=== PATIENT | male | born 1960 ===

== ENCOUNTER 2016-09-01 15:03 | Inpatient (IN) ==
--- NOTE | 2016-09-01 15:22 | Emergency Department Note ---
José Miguel Lowry [place], am scribing for, and in the presence of, Kevin Lagos MD 15:20. Demond Lowry Charles R, MD, personally performed the services described in this documentation, ascribed by Leia Valdez in my presence, and it is both accurate and complete 522 . Arrival - Arrival Chief Complaint: Chest Pain ED Nursing Triage Note: c/o chest pain with coughing and sob. cough started about 2 weeks ago Mode of Arrival: Stretcher Limitations: No Limitations Source: Patient Time Seen by Provider: 09/01/16 15:17 - History of Present Illness HPI Narrative: This is a 56 y/o male presenting to the ED with c/o chest pain, SOB and cough that onset two weeks ago. Pt states it started with his sinus congestion. He went outside this morning and became SOB and near syncopal and this is when the chest pain onset. With each cough, he states his chest pain returns. He states he is not in pain at the moment. Pt had a valve replaced, [place] valve. Pt states he has not taken his Warfarin in one month. He was given Lovenox. Pt denies nausea, vomiting, diarrhea, abdominal pain, back pain, dysuria, and pedal edema. Pt walks with a cane because he has chronic knee pain. His PMHx is consistent with HTN, glaucoma, GERD, and status post aVR. Consistency: constant Severity: moderate Allergies/Adverse Reactions: Allergies Allergy/AdvReac Type Severity Reaction Status Date / Time No Known Allergies Allergy Unverified 12/06/15 20:30 Home Medications: Home Medications Medication Instructions Recorded Confirmed Type Brimonidine 0.1% Oph Soln 1 drop BOTH EYES TID ophthalmic 02/21/16 09/01/16 Rx [Alphagan P 0.1% Oph Soln] solution Dorzolamide 2% Oph Soln [Trusopt 1 drop BOTH EYES TID ophthalmic 02/21/1609/01 Rx 2% Oph Soln] solution Thiamine Tab [Vitamin B1 Tab] 100 mg PO DAILY tablet 02/21/16 09/01/16 Rx Travoprost 0.004% Oph Soln 1 drop BOTH EYES BEDTIME 02/21/16 09/01/16 Rx [Travatan Z] ophthalmic solution Bisacodyl Tab [Dulcolax Tab] 10 mg PO BEDTIME PRN 03/11/16 09/01/16 History Aspirin EC Tab 81 mg PO DAILY #30 tablet 03/16/16 09/01/16 Rx Colchicine 0.6 mg PO DAILY 09/01/16 09/01/16 History Latanoprost [Latanoprost 0.005 % 1 drop BOTH EYES BEDTIME 09/01/16 09/01/16 History Oph Soln] Losartan [Cozaar] 50 mg PO DAILY 09/01/16 09/01/16 History Review of System - Review of System 12 point system: reviewed and no additional remarkable complaints except as stated - Review of System Constitutional: Absent: chills, fever, weakness Eyes: Absent: vision change Head/Ears/Nose/Throat: Absent: earache, nasal drainage Respiratory: Present: cough, wheezing. Absent: respiratory distress Cardiovascular: Present: chest pain, dyspnea on exertion. Absent: syncope ( near sycopal episode this morning ) Gastrointestinal: Absent: abdominal pain, nausea, vomiting Genitourinary male: Absent: dysuria Musculoskeletal: Absent: arm pain, back pain Skin: Absent: rash Neurological: Absent: headache, weakness, confusion, vertigo Psychiatric: Absent: anxiety Endocrine: Absent: fatigue Hematological/Lymphatic: Absent: easy bleeding Allergic/Immunologic: Absent: facial swelling Medical,Surgical,& Family Hx - Medical History Cardio: History of: Hypertension, Valvular Heart Disease (AI is status post aVR) Neurology: No history of: Seizures HEENT: History of: Eye Problem (Rt eye surg R/T trauma), Glaucoma Endocrine: History of: Dyslipidemia No history of: Diabetes Mellitus (IDDM), Diabetes Mellitus (NIDDM) Gastrointestinal: History of: GERD - Surgical History Cardiac Surgeries: Sugical HX of: Cardiac Surgery (Aortic valve replaced) - Social History Smoking Status: Former smoker Frequency of Alcohol Use: Occasionally Type of Drug Use: None Exam Vital Signs: Vital Signs Temperature 97.8 F 09/01/16 15:07 Pulse Rate 95 H 09/01/16 15:07 Respiratory Rate 18 09/01/16 15:07 Blood Pressure 163/98 09/01/16 15:07 O2 Sat by Pulse Oximetry 98 09/01/16 15:07 - General General appearance: alert, in no apparent distress - Head Head exam: Present: atraumatic, normocephalic, normal inspection - Eye Eye exam: Present: normal appearance, PERRL, EOMI, other (chronic right eye glazed over ) - ENT ENT exam: Present: normal exam, normal oropharynx, mucous membranes moist, TM's normal bilaterally, normal external ear exam - Neck Neck exam: Present: normal inspection, full ROM, trachea midline. Absent: tenderness - Chest Chest inspection: Present: normal inspection, symmetric chest wall rise. Absent : tenderness - Respiratory Respiratory exam: Present: rales, wheezes. Absent: normal lung sounds bilaterally - Cardiovascular Cardiovascular exam: Present: regular rate, normal heart sounds, other ( mechanical valve 4/6) - Abdominal Exam Abdominal exam: Present: soft, normal bowel sounds. Absent: distention, tenderness - Extremities Exam Extremities exam: Present: normal inspection, full ROM, normal capillary refill. Absent: tenderness, pedal edema, calf tenderness - Back Exam Back exam: Present: normal inspection, full ROM. Absent: tenderness - Neurological Exam Neurological exam: Present: alert, oriented X3, CN II-XII intact, normal gait, reflexes normal - Psychiatric Psychiatric exam: Present: normal affect, normal mood - Skin Skin exam: Present: warm, dry, intact, normal color. Absent: rash, diaphoresis Course - Consultations Consultation #1: Hospitalist will admit patient Time: 15:41 Results - Labs Lab Results: I have reviewed the patients labs Labs: All labs reviewed from previous facility Disposition Clinical Impression: Atypical chest pain, Chest pain, S/P AVR (aortic valve replacement), Chronic anticoagulation, Medical non-compliance Case discussed with: patient Disposition: Still a Patient Condition: Stable Time of Disposition: 15:42
[2016-09-01] MEDS ORDERED: FUROSEMIDE 40 MG/4 ML VIAL IV STA (15:32)
[2016-09-01] MEDS ORDERED: ASPIRIN 325 MG TABLET PO STA (15:32)
[2016-09-01] MEDS ORDERED: ONDANSETRON 4 MG/2 ML VIAL IV STA (15:32)
[2016-09-01] MEDS ORDERED: METOPROLOL TARTRATE 25 MG TABLET PO STA (15:32)
[2016-09-01] MEDS ORDERED: MORPHINE 2 MG/1 ML SYRINGE IV STA (15:32)
[2016-09-01] MEDS ORDERED: NITROGLYCERIN 2% OINT 1 INCH/GM PACK TOP STA (15:32)
[2016-09-01] MEDS ORDERED: NITROGLYCERIN 2% OINT 1 INCH/GM PACK TOP ONE (15:39)
[2016-09-01] MEDS ORDERED: METOPROLOL TARTRATE 25 MG TABLET ONE (15:39)
[2016-09-01] MEDS ORDERED: FUROSEMIDE 40 MG/4 ML VIAL ONE (15:39)
[2016-09-01] MEDS ORDERED: ONDANSETRON 4 MG/2 ML VIAL ONE (15:39)
[2016-09-01] MEDS ORDERED: MORPHINE 2 MG/1 ML SYRINGE ONE (15:40)
[2016-09-01] MEDS ORDERED: ASPIRIN 325 MG TABLET ONE (15:40)
--- NOTE | 2016-09-01 15:50 | XRay Report ---
XR chest 1V portable Indication: Chest pain Comparison: 12 March 2016 Findings: The heart and mediastinum are stable in size and configuration with cardiac surgery changes. The pulmonary vascularity is normal in caliber. No lung infiltrates, effusions, pneumothorax or other abnormality is demonstrated. Impression: No acute cardiopulmonary disease. PROCEDURE INTERPRETED AT [facility] DEPARTMENT OF RADIOLOGY Final Report Signed by: Dr. Rob Crawford
--- NOTE | 2016-09-01 15:51 | EKG Report ---
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
[2016-09-01 16:23] LABS: Basophils % 0.4 % (0.0-0.8); Eosinophils # 0.1 10*3/uL (0.0-0.87); Eosinophils % 6.1 % (0.00-10.9); Hematocrit 33.8 VOL% (42.0-52.0); Hemoglobin 11.1 GM/DL (14.0-18.0); Immature Granulocytes % 0.4 %; Immature Granulocytes Absolute 0.01 #; Lymphocytes # 0.7 10*3/uL (1.4-4.0); Mean Corpuscular HGB Conc 32.8 GM/DL (32-36); Mean Corpuscular Hemoglobin 27 PG (27-34); Mean Corpuscular Volume 83.3 FL (87-102); Mean Platelet Volume 9.4 FL (9.6-12.0); Monocytes # 0.2 10*3/uL (0.11-0.8); Monocytes % 9.6 % (1.7-12.7); Neutrophils # 1.2 10*3/uL (1.4-7.4); Neutrophils % 53.5 % (38.7-73.9); Red Blood Count 4.06 MC/CUMM (3.8-5.5); Red Cell Distribution Width 18.9 % (9.3-17.3); White Blood Count 2.3 T/CUMM (4-12)
[2016-09-01 16:30] LABS: Platelet Count 61 T/CUMM (130-400)
[2016-09-01 16:31] LABS: Platelet Estimate Decreased
[2016-09-01 16:32] LABS: D-Dimer 0.9 MG/L FEU; INR 1.1; PT Patient Result 11.9 SECS
[2016-09-01 16:43] LABS: Albumin 3.7 G/DL (3.4-5.0); Bilirubin,Total 0.9 MG/DL (0.2-1.0); Calcium 7.6 MG/DL (8.5-10.1); Osmolality,Calculated 285.7 MOS/KG (273-304); Potassium 3.8 MMOL/L (3.5-5.1); Total Protein 6.8 G/DL (6.4-8.3)
--- NOTE | 2016-09-01 17:08 | Hospitalist History & Physical ---
Assessment and Plan (1) Near syncope Status: Acute Assessment and plan: This could be related to his underlying URI Plan -Telemetry -Cardiac enzymes -Echo -carotid dopplers -CT head - Lovenox 1mg/kg q12 -restart Coumadin -consult Pharmarcy -consult Cardiology -D-dimer -ASA Current Visit: Yes (2) S/P AVR (aortic valve replacement) Status: Chronic Assessment and plan: INR is subtherapeutic, patient is clearly non compliant to his Coumadin -Restart anticoagulation -Pharmacy to assist -cardiology to evaluate -Echo Current Visit: No (3) Pancytopenia Status: Acute Assessment and plan: Patient not having any clinical evidence of bleed. He really needs to be on anticogulation -will get Hem/Onc to see and advise cbc in am Current Visit: Yes (4) HTN (hypertension) Status: Acute Assessment and plan: will resume meds Current Visit: No (5) URI (upper respiratory infection) Status: Acute Assessment and plan: will give duonebs -get influenza A and B -decongestants, sputum if produced for gram stain and cultures Current Visit: Yes (6) Glaucoma Status: Acute Assessment and plan: continue with home meds. Current Visit: Yes (7) Abnormal liver enzymes Status: Acute Assessment and plan: ? cause due ? ETOH -Hepatitis panel -liver scan Current Visit: Yes History of Present Illness Chief complaint: near syncope History of present illness: Mr. Mims is a 56 year old male with a history of AI s/p AVR somtime late last year, HTN, who has been having sinus problems, dry cough, nasal congestion, chills for the past 2weeks. This am, he went outside his house to use his phone , suddenly became weak, flushed,short of breath and almost passed out so he came back inside the house, called his clinic and EMS was sent to him.He states an associated heart flutter, chest pain related to his cough and left arm weakness and numbness. He however denies chest tightness. He had an episode of nausea yesterday but no vomiting, no hematemesis or melena stools. He also denies fever, dysuria, leg pain or swelling. No abdominal pain , constipation, diarrhea and no urinary symptoms.He states he hardly takes his coumadin and has not been on it for about a month because each time he visits the coumadin clinic , there is always a lot of people waiting. Upon arrival, INR was 1.1, cardiac enzymes were negative and he was pancytopenic.CXR showed no acute changes. He was given lovenox and now admitted to Telemetry for closer monitoring. Home Medications Medication Instructions Recorded Confirmed Type Brimonidine 0.1% Oph Soln 1 drop BOTH EYES TID ophthalmic 02/21/16 09/01/16 Rx [Alphagan P 0.1% Oph Soln] solution Dorzolamide 2% Oph Soln [Trusopt 1 drop BOTH EYES TID ophthalmic 02/21/1609/01 Rx 2% Oph Soln] solution Thiamine Tab [Vitamin B1 Tab] 100 mg PO DAILY tablet 02/21/16 09/01/16 Rx Travoprost 0.004% Oph Soln 1 drop BOTH EYES BEDTIME 02/21/16 09/01/16 Rx [Travatan Z] ophthalmic solution Bisacodyl Tab [Dulcolax Tab] 10 mg PO BEDTIME PRN 03/11/16 09/01/16 History Aspirin EC Tab 81 mg PO DAILY #30 tablet 03/16/16 09/01/16 Rx Colchicine 0.6 mg PO DAILY 09/01/16 09/01/16 History Latanoprost [Latanoprost 0.005 % 1 drop BOTH EYES BEDTIME 09/01/16 09/01/16 History Oph Soln] Losartan [Cozaar] 50 mg PO DAILY 09/01/16 09/01/16 History Allergies Allergy/AdvReac Type Severity Reaction Status Date / Time No Known Allergies Allergy Unverified 12/06/15 20:30 Medical,Surgical,& Family Hx - Medical History Cardio: History of: Hypertension, Valvular Heart Disease (AI is status post aVR) Neurology: No history of: Seizures HEENT: History of: Eye Problem (Rt eye surg R/T trauma), Glaucoma Endocrine: History of: Dyslipidemia No history of: Diabetes Mellitus (IDDM), Diabetes Mellitus (NIDDM) Gastrointestinal: History of: GERD - Surgical History Cardiac Surgeries: Sugical HX of: Cardiac Surgery (Aortic valve replaced) - Social History Smoking Status: Former smoker Frequency of Alcohol Use: Occasionally Type of Drug Use: None 12 point system: reviewed and no additional remarkable complaints except as stated Exam - Constitutional General appearance: no acute distress, other (bad right eye) - Respiratory Respiratory exam: Present: clear to auscultation bilaterally - Cardiovascular Cardiovascular exam: Present: regular rate and rhythm, other (mechanical click) - GI/Abdominal GI/Abdominal exam: Present: normal bowel sounds - Extremities Exam Extremities exam: Present: normal inspection Results - Labs CBC & BMP: 09/01/16 15:49 09/01/16 15:49 Lab Results: I have reviewed the past 24 hour labs
[2016-09-01 17:48] LABS: Apearance,Urine CLEAR (Clear); Bilirubin,Urine Negative (Negative); Blood, Urine Negative (Negative); Glucose,Urine (UA) Negative (Negative); Ketones,Urine Negative (Negative); Mucus,Urine Occasional /LPF (Occasional); Nitrite,Urine Negative (Negative); Protein,Urine Negative; RBC,Urine <1 /HPF (0-4); Squamous Epithelial Cell,Urine Occasional /HPF (0-10); Urine Color Yellow (Yellow); Urine Specific Gravity 1.009 (1.001-1.035); Urine Urobilinogen < 2.0 EU/DL (0.2-1.0); WBC,Urine 1 /HPF (0-6)
[2016-09-01 17:53] LABS: Barbiturates Screen,Urine Negative (Negative); Benzodiazepines Screen,Urine Negative (Negative); Cannabinoid Screen,Urine Negative (Negative); Opiate Screen,Urine Negative (Negative); Phencyclidine Screen,Urine Negative (Negative)
[2016-09-01] MEDS ORDERED: BISACODYL 5 MG TABLET PO PRN (20:03)
[2016-09-01] MEDS ORDERED: ONDANSETRON 4 MG/2 ML VIAL IV PRN (20:03)
[2016-09-01] MEDS ORDERED: guaiFENesin/DM ER 600-30 MG TABLET PO PRN (20:03)
[2016-09-01] MEDS ORDERED: ACETAMINOPHEN 325 MG TABLET PO PRN (20:03)
[2016-09-01] MEDS ORDERED: ZALEPLON 5 MG CAPSULE PO PRN (20:03)
--- NOTE | 2016-09-01 20:44 | CT Report ---
CT brain Indication: Near syncope Comparison: 24 December 2011 Technique: Axial CT imaging of the brain is performed without contrast with 3 mm increments. Findings: No evidence of hemorrhage, mass mass effect midline shift or acute infarct seen. The brain parenchyma attenuation and differentiation appears within normal limits. The ventricles and cisterns are normal in caliber. Right eye increased density is present. No other cranial or skull base is identified. Impression: No evidence of abnormality demonstrated. This CT exam was performed using one or more the following dose reduction techniques: Automated exposure control, adjustment of the MA and/or KV according to patient size, or use of iterative reconstruction technique. PROCEDURE INTERPRETED AT [facility] DEPARTMENT OF RADIOLOGY Final Report Signed by: Dr. Rob Crawford
[2016-09-01 20:52] LABS: Troponin I Only < 0.015 NG/ML (0.00-0.045)
--- NOTE | 2016-09-01 21:22 | Ultrasound Report ---
Carotid artery ultrasound Indication: Near syncope Comparison: None available Color Doppler flow and spectral analysis was performed. Findings: Minimal amount of atherosclerotic plaque is present in both proximal internal carotid arteries. The peak systolic velocity in the right is 57 cm/s . Ratio of flow is 1.1. The peak systolic velocity in the left is 64 cm/s . Ratio of flow is 1.2 Bilateral antegrade vertebral flow is seen. Impression: No evidence of hemodynamically significant stenosis is seen, 0-49% estimated stenosis. Consensus conference on the carotid ultrasound criteria used. Ultrasound images were captured and stored. PROCEDURE INTERPRETED AT [facility] DEPARTMENT OF RADIOLOGY Final Report Signed by: Dr. Rob Crawford
--- NOTE | 2016-09-01 21:24 | Ultrasound Report ---
Right upper quadrant ultrasound Indication: Abdominal Pain Findings: The liver is normal in size with heterogeneous parenchymal echogenicity. The gallbladder has been removed. The common bile duct measures 5.0 mm. The visualized portion of the pancreas appear within normal limits The right kidney is normal in size and echogenicity and measures 11.1 cm . No free fluid or free air seen. Impression: Heterogeneous liver echogenicity. No other evidence of abnormality demonstrated. Ultrasound images stored and captured. PROCEDURE INTERPRETED AT [facility] DEPARTMENT OF RADIOLOGY Final Report Signed by: Dr. Rob Crawford
[2016-09-01 21:56] LABS: Hepatitis A Ab IgM Quant 0.08 Index; Hepatitis A Ab IgM Result Negative (Negative); Hepatitis B Core IgM Quant 0.16 Index; Hepatitis B Core IgM Result Negative (Negative); Hepatitis B Surface Ag Quant < 0.10 Index; Hepatitis B Surface Ag Result Negative (Negative); Hepatitis C Virus Ab Quant 0.17 Index; Hepatitis C Virus Ab Result Negative (Negative)
[2016-09-01] MEDS: FLUTICASONE 50 MCG NASAL SPRAY 16 GM BOTTLE BOTH NARES SCH (22:23)
[2016-09-01] MEDS: WARFARIN 5 MG TABLET PO SCH (22:23)
[2016-09-01] MEDS: ENOXAPARIN 80 MG/0.8 ML SYRINGE SUBCUT SCH (22:24)
[2016-09-02] MEDS: BRIMONIDINE 0.1% OPH SOLN 5 ML BOTTLE BOTH EYES SCH ×4 (00:32→22:07)
[2016-09-02] MEDS: LATANOPROST 0.005% OPH SOLN 2.5 ML BOTTLE BOTH EYES SCH ×2 (00:32→22:13)
[2016-09-02] MEDS: TRAVOPROST 0.004% OPH SOLN 2.5 ML BOTTLE BOTH EYES SCH ×2 (00:32→22:09)
[2016-09-02] MEDS: DORZOLAMIDE 2% OPH SOLN 10 ML BOTTLE BOTH EYES SCH ×4 (00:32→22:07)
[2016-09-02 06:24] LABS: Basophils % 0.9 % (0.0-0.8); Eosinophils # 0.2 10*3/uL (0.0-0.87); Eosinophils % 7.1 % (0.00-10.9); Hematocrit 34.6 VOL% (42.0-52.0); Hemoglobin 11.2 GM/DL (14.0-18.0); Immature Granulocytes % 0.3 %; Immature Granulocytes Absolute 0.01 #; Mean Corpuscular HGB Conc 32.4 GM/DL (32-36); Mean Corpuscular Hemoglobin 27 PG (27-34); Mean Corpuscular Volume 82.2 FL (87-102); Mean Platelet Volume 9.5 FL (9.6-12.0); Monocytes # 0.4 10*3/uL (0.11-0.8); Monocytes % 11.5 % (1.7-12.7); Neutrophils # 1.6 10*3/uL (1.4-7.4); Neutrophils % 49.2 % (38.7-73.9); Red Blood Count 4.21 MC/CUMM (3.8-5.5); Red Cell Distribution Width 18.6 % (9.3-17.3); White Blood Count 3.2 T/CUMM (4-12)
[2016-09-02 06:25] LABS: Platelet Count 66 T/CUMM (130-400)
[2016-09-02 06:53] LABS: Albumin 3.6 G/DL (3.4-5.0); Bilirubin,Total 1.3 MG/DL (0.2-1.0); Calcium 8.1 MG/DL (8.5-10.1); Osmolality,Calculated 278.3 MOS/KG (273-304); Potassium 3.2 MMOL/L (3.5-5.1); Risk Ratio 2.28; Total Protein 6.9 G/DL (6.4-8.3); VLDL CHOLESTEROL 20.2 MG/DL
[2016-09-02 06:55] LABS: Troponin I Only < 0.015 NG/ML (0.00-0.045)
[2016-09-02 07:05] LABS: Hypochromasia 1+; Platelet Estimate Decreased
[2016-09-02 07:06] LABS: Microcytosis Slight
--- NOTE | 2016-09-02 08:05 | Oncology Consult Note ---
History of Present Illness History of present illness: Mr. Mims is a 56 year old male with Thrombocytopenia. To the patient's knowledge, he has never had thrombocytopenia. He does not even know what platelets are. I explained to him and he tells me that he has never been told he had a low platelet count. Medications that this patient is currently taking include eyedrops as well as aspirin, colchicine, and losartan. He was admitted at this time with chest pain and dyspnea as well as cough. I note that he is on an PRETTY inhibitor, losartan, which can be associated with cough as well as with thrombocytopenia, vasculitis, anemia and leukopenia. It is also associated with a nonproductive cough. Blood work on this admission included a white cell count 2300 with an absolute neutrophil count of 1200, hemoglobin of 11.1 and a platelet count of 61,000 with a low MPV of 9.4. The culture saying that he is taking could be contributing to his anemia, leukopenia and thrombocytopenia as well. It can cause all 3. In addition, he has abnormal liver enzymes and has a history of ethanol intake as well as possible liver disease or other cause. His admission AST was 94 with an ALT of 71 and an alkaline phosphatase of 143. The next morning he was reported to have a total bilirubin of 1.3. - Medical History Allergies: No known allergies Cardio: History of: Hypertension, Valvular Heart Disease (AI is status post aVR) . Neurology: No history of: Seizures HEENT: History of: Eye Problem (Rt eye surg R/T trauma), Glaucoma Endocrine: History of: Dyslipidemia No history of: Diabetes Mellitus (IDDM), Diabetes Mellitus (NIDDM) Gastrointestinal: History of: GERD no definite history of liver disease in the past. He is and they frequently have elevated liver enzymes with little or no history of alcohol use, much less alcohol abuse. - Surgical History Cardiac Surgeries: Sugical HX of: Cardiac Surgery (Aortic valve replaced) for which he is supposed to be on anticoagulants. He has also had eye surgery for past injuries and is blind in his right eye. - Social History Smoking Status: Former smoker Frequency of Alcohol Use: Occasionally Type of Drug Use: None Review of systems: 12 point system: reviewed and no additional remarkable complaints except as stated. Specifically no history in the past of a low platelet count. He has been on anticoagulants. 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 Physical examination: General: The patient does appear somewhat chronically ill but he is in no acute distress and was sleeping deeply when I initially saw him. Eyes: His right eye is deformed and the cornea is opacified. ENT: His hearing is normal. His oral mucosa is normal. His posterior pharynx appears normal. Neck: His trachea is midline. He has no neck masses. Lungs: Breath sounds are relatively normal without rubs, rales or rhonchi. There is symmetrical chest motion with respiration. Cardiovascular: His heart rhythm is regular without an artificial heart sound present and heard throughout the precordium. There is no clubbing or cyanosis. Abdomen: I cannot palpate any abdominal masses or organomegaly. Musculoskeletal: There is no obvious focal muscle atrophy or bone or joint deformity. Neurologic: Cranial nerves II through XII are intact. There are no focal neurologic deficits. Nodes: I can palpate no submandibular, cervical, supraclavicular or axillary adenopathy. Impression: Thrombocytopenia that could be from multiple causes including the PRETTY inhibitor that he is taking, alcohol if his alcohol intake is more than he indicates, platelet destruction by the heart valve or possibly other causes. I understand this patient having a liver scan of some type done. This should give us an idea whether his spleen is enlarged or not. I have ordered an OSEI and rheumatoid factor. Consider discontinuing the PRETTY inhibitor and/or the colchicine which may be contributing to the patient's thrombocytopenia, leukopenia and anemia. He does not demonstrate any evidence of active bleeding presently. Home Medications Medication Instructions Recorded Confirmed Type Brimonidine 0.1% Oph Soln 1 drop BOTH EYES TID ophthalmic 02/21/16 09/01/16 Rx [Alphagan P 0.1% Oph Soln] solution Dorzolamide 2% Oph Soln [Trusopt 1 drop BOTH EYES TID ophthalmic 02/21/1609/01 Rx 2% Oph Soln] solution Thiamine Tab [Vitamin B1 Tab] 100 mg PO DAILY tablet 02/21/16 09/01/16 Rx Travoprost 0.004% Oph Soln 1 drop BOTH EYES BEDTIME 02/21/16 09/01/16 Rx [Travatan Z] ophthalmic solution Bisacodyl Tab [Dulcolax Tab] 10 mg PO BEDTIME PRN 03/11/16 09/01/16 History Aspirin EC Tab 81 mg PO DAILY #30 tablet 03/16/16 09/01/16 Rx Colchicine 0.6 mg PO DAILY 09/01/16 09/01/16 History Latanoprost [Latanoprost 0.005 % 1 drop BOTH EYES BEDTIME 09/01/16 09/01/16 History Oph Soln] Losartan [Cozaar] 50 mg PO DAILY 09/01/16 09/01/16 History Allergies Allergy/AdvReac Type Severity Reaction Status Date / Time No Known Allergies Allergy Unverified 12/06/15 20:30 Medical,Surgical,& Family Hx - Medical History Cardio: History of: Hypertension, Valvular Heart Disease (AI is status post aVR) Neurology: No history of: Seizures HEENT: History of: Eye Problem (Rt eye surg R/T trauma), Glaucoma Endocrine: History of: Dyslipidemia No history of: Diabetes Mellitus (IDDM), Diabetes Mellitus (NIDDM) Gastrointestinal: History of: GERD - Surgical History Cardiac Surgeries: Sugical HX of: Cardiac Surgery (Aortic valve replaced) Neurologic Surgeries: Patient denies: Neurologic Surgery Abdominal Surgeries: Patient denies: Abdominal Surgery Reproductive Surgeries: Patient denies;: Genitourinary Surgery - Social History Smoking Status: Former smoker Frequency of Alcohol Use: Occasionally Type of Drug Use: None Exam - Constitutional Vitals: Period Temp Pulse Resp BP Sys/Jean Pulse Ox Last 24 Hr 97.7 F-98.6 F 60-77 15-20 121-144/70-88 94-97 Results - Labs CBC & BMP: 09/02/16 06:06 09/02/16 06:06
[2016-09-02] MEDS ORDERED: COLCHICINE 0.6 MG TABLET PO SCH (09:00)
[2016-09-02] MEDS ORDERED: LOSARTAN 50 MG TABLET PO SCH (09:00)
[2016-09-02] MEDS: ENOXAPARIN 80 MG/0.8 ML SYRINGE SUBCUT SCH (09:38)
--- NOTE | 2016-09-02 11:28 | Cardiology Consult Note ---
<Cara Allison E - Last Filed: 09/02/16 14:35> Assessment and Plan - Time spent with patient Time spent with patient: Greater than 30 minutes (1) S/P AVR (aortic valve replacement) Status: Chronic Assessment and plan: SEE PLAN OF CARE LISTED BELOW Current Visit: No (2) Hypokalemia Status: Acute Assessment and plan: SEE PLAN OF CARE LISTED BELOW Current Visit: No (3) Atypical chest pain Status: Acute Assessment and plan: SEE PLAN OF CARE LISTED BELOW Current Visit: Yes (4) Medical non-compliance Status: Chronic Assessment and plan: SEE PLAN OF CARE LISTED BELOW Current Visit: Yes (5) Near syncope Status: Resolved Assessment and plan: SEE PLAN OF CARE LISTED BELOW Current Visit: Yes (6) Pancytopenia Status: Acute Assessment and plan: SEE PLAN OF CARE LISTED BELOW Current Visit: Yes (7) URI (upper respiratory infection) Status: Acute Assessment and plan: SEE PLAN OF CARE LISTED BELOW Current Visit: Yes (8) Abnormal liver enzymes Status: Acute Assessment and plan: SEE PLAN OF CARE LISTED BELOW Current Visit: Yes History of Present Illness - Data of Consult Patient: known to practice within the last 3 years Consult date: 09/02/16 Requesting Physician: Paz Aleman Primary care physician: [facility] - Consult Narrative Reason for consult: AVR, subtherapeutic INR, chest pain History of present illness: VOICE SYSTEMS ENGINEER: DR. PERALTA PCP: [facility] Mr. Mims, 56ChM, followed by Dr. Peralta. Risk factors include: Hypertension, dyslipidemia, sedentary lifestyle, noncompliance and remote tobaccoism. History of aortic regurgitation status post aortic valve replacement (25mm [facility] [facility] mechanical valve) February 12, [address] Leung. Cardiac catheterization December 2015 revealed no artery disease. Patient presented to [facility] August 31, 2016 after experiencing presyncope after a bout of severe coughing. He has had significant sinus congestion and drainage of the past several weeks causing episodes of coughing. Yesterday, coughing became so severe he became lightheaded, dizzy and this lasted approximately 10 minutes. With his cough, he has been experiencing chest pain as well. The chest discomfort is worse when taking a deep breath and not occurring with exertion. Chest discomfort is sharp across lower, lateral chest area. He feels as if he has been running a fever over the past several days but he is afebrile at this point. He has been producing clear sputum. He has had no chest pain with exertion, nor SOB with exertion. He is having difficulty breathing through his nasal passages. His cardiac biomarkers are negative. His EKG, though abnormal, actually looks better than his prior EKGs. D-dimer negative. CT of head, carotid Dopplers revealed no significant abnormality. No arrhythmia has been noted. Patient's INR subtherapeutic. He has not been taking his Coumadin for over 1 month. He tells me he found it aggravating to have to return to [facility] weekly to have his INR drawn. Patient was found to have pancytopenia and Dr. Arreaga has seen patient this morning. Numerous etiologies have been considered including colchicine, PRETTY inhibitor, use of alcohol, tightly destruction by heart valve and other possible causes. Liver ultrasound reveals no significant abnormality. Numerous labs are pending. ASSESSMENT/PLAN: 1. NEAR SYNCOPE - suspect this may cough-induced (near) syncope. CT head, carotid ultrasounds negative. Continue to monitor for arrhythmia. 2. CHEST PAIN -concerning for costochondritis. Chest pain is reproducible to palpation but is also having chest pain with deep breath. His d-dimer is negative. Will treat with NSAIDs as able. 3. S/P AVR -subtherapeutic INR. Today, we had a discussion for greater than 30 minutes today regarding the importance of medication compliance. At this point, he tells me he recognizes the need for chronic anticoagulation with his mechanical aortic valve. Coumadin has been restarted. Due to her thrombocytopenia, she will not require heparin in the interim. Daily INR. 4. HYPERTENSION - Usually well controlled. Will adjust medications accordingly during hospital stay 5. DYSLIPIDEMIA - Continue lipid-lowering agent 6. PANCYTOPENIA - Stop PRETTY inhibitor and Colchicine per Dr. Arreaga's recommendations. Will stop his Lovenox at this time. 7. RIGHT EYE BLIND - Continue current plan of care 8. NON-COMPLIANCE - Again, reiterated the importance of medication compliance and follow-up. Verbalized understanding. 9. HYPOKALEMIA - Replace accordingly. 10. URI - adding Flonase nasal spray, Afrin BID x three days, and Tessalon Perles CC: Paz Aleman MD - Home Medications and Allergies Home Medications: Home Medications Medication Instructions Recorded Confirmed Type Brimonidine 0.1% Oph Soln 1 drop BOTH EYES TID ophthalmic 02/21/16 09/01/16 Rx [Alphagan P 0.1% Oph Soln] solution Dorzolamide 2% Oph Soln [Trusopt 1 drop BOTH EYES TID ophthalmic 02/21/1609/01 Rx 2% Oph Soln] solution Thiamine Tab [Vitamin B1 Tab] 100 mg PO DAILY tablet 02/21/16 09/01/16 Rx Travoprost 0.004% Oph Soln 1 drop BOTH EYES BEDTIME 02/21/16 09/01/16 Rx [Travatan Z] ophthalmic solution Bisacodyl Tab [Dulcolax Tab] 10 mg PO BEDTIME PRN 03/11/16 09/01/16 History Aspirin EC Tab 81 mg PO DAILY #30 tablet 03/16/16 09/01/16 Rx Colchicine 0.6 mg PO DAILY 09/01/16 09/01/16 History Latanoprost [Latanoprost 0.005 % 1 drop BOTH EYES BEDTIME 09/01/16 09/01/16 History Oph Soln] Losartan [Cozaar] 50 mg PO DAILY 09/01/16 09/01/16 History Allergies/Adverse Reactions: Allergies Allergy/AdvReac Type Severity Reaction Status Date / Time No Known Allergies Allergy Unverified 12/06/15 20:30 Review of systems: REVIEW OF SYSTEMS: - Constitutional Constitutional: Present: Near syncope Absent: syncope, anorexia, night sweats - EENT Eyes: Absent: blurry vision. Present: Chronic right eye blindness Ears: Absent: decreased hearing, ear pain, ear discharge Complaints of significant sinus drainage and congestion. Inability to breathe well through his nose. - Cardiovascular Cardiovascular: Present: chest pain with deep breath, cough and to palpation. Denies dyspnea on exertion, edema, palpitations. - Respiratory Respiratory: Present: Denies COOMBS. Persistent cough. Absent: wheezing, hemoptysis - Gastrointestinal Gastrointestinal: Denies: constipation. Absent: adbominal pain, hematemesis, hematochezia, melena, change in bowel habits, nausea - Genitourinary Genitourinary: Absent: difficulty urinating, dysuria, urinary hesitancy, flank pain - Musculoskeletal Musculoskeletal: Present: back pain Absent: joint swelling, muscle cramps, muscle weakness - Neurological Neurological: Present: normal gait without frequent falls. Absent: dizziness, hemiparesis - Psychiatric Psychiatric: Absent: anxiety, depression, difficulty concentrating - Endocrine Endocrine: Absent: cold intolerance, heat intolerance, polyuria, polyphagia, polydipsia - Hematologic/Lymphatic Hematologic/Lymphatic: Present: easy bruising. Absent: easy bleeding -Integumentary Integumentary: Absent: lesions, rashes, skin breakdown Medical,Surgical,& Family Hx - Medical History Cardio: History of: Hypertension, Valvular Heart Disease (AI is status post aVR) No history of: CHF, CAD Neurology: No history of: Seizures HEENT: History of: Eye Problem (Rt eye surg R/T trauma), Glaucoma Endocrine: History of: Dyslipidemia No history of: Diabetes Mellitus (IDDM), Diabetes Mellitus (NIDDM) Gastrointestinal: History of: GERD - Surgical History Cardiac Surgeries: Sugical HX of: Cardiac Surgery (Aortic valve replaced) Neurologic Surgeries: Patient denies: Neurologic Surgery Abdominal Surgeries: Patient denies: Abdominal Surgery Reproductive Surgeries: Patient denies;: Genitourinary Surgery - Social History Smoking Status: Former smoker Have you smoked in the last 12 months: No Frequency of Alcohol Use: Occasionally Type of Drug Use: None Physical Examination Vital Signs Temp Pulse Resp BP Pulse Ox 97.8 F 95 H 18 163/98 98 09/01/16 15:07 09/01/16 15:07 09/01/16 15:07 09/01/16 15:07 09/01/16 15:07 General: [Appears well with no apparent distress.] [Pleasant and cooperative. ] [Appears comfortable.] HEENT: [Right eye chronic changes, normocephalic, atraumatic. Mucous membranes moist. No jaundice noted. Conjunctiva moist and clear, sclerae anicteric]. No neck lymphadenopathy Neck: No JVD/HJR, no thyromegaly or lymphadenopathy noted. No carotid bruit appreciated Cardiac: [Regular rate and rhythm.] [Click auscultated best at BUSB. Lungs: [Clear to auscultation without accessory muscle use to assist the respiratory pattern.] Not requiring oxygen Abdomen: Soft, bowel sounds normoactive. Nontender and nondistended. No abdominal bruit or thrill noted. No masses noted. Musculoskeletal: No fluid collection. Decreased range of motion is noted. Extremities: No clubbing, cyanosis noted. [ No edema noted.] Upper extremity pulses 2+. Lower extremity pulses 2+. Capillary refill less than 3 seconds. Skin: No unusual lesions or rashes. No skin breakdown appreciated. Neuro: Awake, alert and oriented 3. Moves all extremities well without hemiparesis or paralysis. No essential tremor is appreciated. Result/EKG - Labs CBC & BMP: 09/02/16 06:06 09/02/16 06:06 Lab Results: I have reviewed the past 24 hour labs Labs: Laboratory Results - last 24 hr 09/01/16 09/01/16 09/01/16 17:33 17:33 19:39 WBC RBC Hgb Hct MCV MCH MCHC RDW Plt Count MPV Neut % (Auto) Lymph % (Auto) [place] % (Auto) Eos % (Auto) Baso % (Auto) Neut # (Auto) Lymph # (Auto) [place] # (Auto) Eos # (Auto) Baso # (Auto) Immature Gran % Nucleated RBC % Immature Gran # Nucleated RBCs # Platelet Estimate Hypochromasia Microcytosis Morphology Comment D-Dimer, Quantitative Sodium Potassium Chloride Carbon Dioxide Anion Gap BUN Creatinine GFR Calculation BUN/Creatinine Ratio Glucose Calculated Osmolality Calcium Total Bilirubin AST ALT Alkaline Phosphatase Total Creatine Kinase CK-MB (CK-2) Troponin I < 0.015 B-Natriuretic Peptide Total Protein Albumin Globulin Albumin/Globulin Ratio Triglycerides Cholesterol LDL Cholesterol VLDL Cholesterol HDL Cholesterol Heart Disease Risk Ratio TSH 3rd Generation Urine Color Yellow Urine Appearance Clear Urine pH 7.0 Ur Specific [place] 1.009 Urine Protein Negative Urine Glucose (UA) Negative Urine Ketones Negative Urine Blood Negative Urine Nitrate Negative Urine Bilirubin Negative Urine Urobilinogen < 2.0 H Urine Leukocytes Negative Urine RBC <1 Urine WBC 1 Ur Squamous Epith Cells Occasional Urine Mucus Occasional Ur Culture Indicated? Not indicated Urine Opiates Screen Negative Ur Barbiturates Screen Negative Ur Phencyclidine Scrn Negative U Amphetamine/Methamph Negative U Benzodiazepines Scrn Negative U Cocaine Metab Screen Negative U Cannabinoids Screen Negative Rheumatoid Factor Hepatitis A IgM Ab Hep Bs Antigen Hep B Core IgM Ab Hepatitis C Antibody 09/01/16 09/01/16 09/01/16 20:13 20:13 20:13 WBC RBC Hgb Hct MCV MCH MCHC RDW Plt Count MPV Neut % (Auto) Lymph % (Auto) [place] % (Auto) Eos % (Auto) Baso % (Auto) Neut # (Auto) Lymph # (Auto) [place] # (Auto) Eos # (Auto) Baso # (Auto) Immature Gran % Nucleated RBC % Immature Gran # Nucleated RBCs # Platelet Estimate Hypochromasia Microcytosis Morphology Comment D-Dimer, Quantitative 0.9 Sodium Potassium Chloride Carbon Dioxide Anion Gap BUN Creatinine GFR Calculation BUN/Creatinine Ratio Glucose Calculated Osmolality Calcium Total Bilirubin AST ALT Alkaline Phosphatase Total Creatine Kinase CK-MB (CK-2) Troponin I B-Natriuretic Peptide 8 Total Protein Albumin Globulin Albumin/Globulin Ratio Triglycerides Cholesterol LDL Cholesterol VLDL Cholesterol HDL Cholesterol Heart Disease Risk Ratio TSH 3rd Generation 1.230 Urine Color Urine Appearance Urine pH Ur Specific [place] Urine Protein Urine Glucose (UA) Urine Ketones Urine Blood Urine Nitrate Urine Bilirubin Urine Urobilinogen Urine Leukocytes Urine RBC Urine WBC Ur Squamous Epith Cells Urine Mucus Ur Culture Indicated? Urine Opiates Screen Ur Barbiturates Screen Ur Phencyclidine Scrn U Amphetamine/Methamph U Benzodiazepines Scrn U Cocaine Metab Screen U Cannabinoids Screen Rheumatoid Factor Hepatitis A IgM Ab Hep Bs Antigen Hep B Core IgM Ab Hepatitis C Antibody 09/01/16 09/01/16 09/01/16 20:13 20:13 21:24 WBC RBC Hgb Hct MCV MCH MCHC RDW Plt Count MPV Neut % (Auto) Lymph % (Auto) [place] % (Auto) Eos % (Auto) Baso % (Auto) Neut # (Auto) Lymph # (Auto) [place] # (Auto) Eos # (Auto) Baso # (Auto) Immature Gran % Nucleated RBC % Immature Gran # Nucleated RBCs # Platelet Estimate Hypochromasia Microcytosis Morphology Comment D-Dimer, Quantitative Sodium Potassium Chloride Carbon Dioxide Anion Gap BUN Creatinine GFR Calculation BUN/Creatinine Ratio Glucose Calculated Osmolality Calcium Total Bilirubin AST ALT Alkaline Phosphatase Total Creatine Kinase 150 CK-MB (CK-2) < 1.0 Troponin I < 0.015 < 0.015 B-Natriuretic Peptide Total Protein Albumin Globulin Albumin/Globulin Ratio Triglycerides Cholesterol LDL Cholesterol VLDL Cholesterol HDL Cholesterol Heart Disease Risk Ratio TSH 3rd Generation Urine Color Urine Appearance Urine pH Ur Specific [place] Urine Protein Urine Glucose (UA) Urine Ketones Urine Blood Urine Nitrate Urine Bilirubin Urine Urobilinogen Urine Leukocytes Urine RBC Urine WBC Ur Squamous Epith Cells Urine Mucus Ur Culture Indicated? Urine Opiates Screen Ur Barbiturates Screen Ur Phencyclidine Scrn U Amphetamine/Methamph U Benzodiazepines Scrn U Cocaine Metab Screen U Cannabinoids Screen Rheumatoid Factor Hepatitis A IgM Ab Negative Hep Bs Antigen Negative Hep B Core IgM Ab Negative Hepatitis C Antibody Negative 09/02/16 09/02/16 09/02/16 06:04 06:06 06:06 WBC 3.2 L D RBC 4.21 Hgb 11.2 L Hct 34.6 L MCV 82.2 L MCH 27 MCHC 32.4 RDW 18.6 H Plt Count 66 L MPV 9.5 L Neut % (Auto) 49.2 Lymph % (Auto) 31.0 Foard % (Auto) 11.5 Eos % (Auto) 7.1 Baso % (Auto) 0.9 H Neut # (Auto) 1.6 Lymph # (Auto) 1.0 L [place] # (Auto) 0.4 Eos # (Auto) 0.2 Baso # (Auto) 0.0 Immature Gran % 0.3 Nucleated RBC % 0.0 Immature Gran # 0.01 Nucleated RBCs # 0.00 Platelet Estimate Decreased Hypochromasia 1+ Microcytosis Slight Morphology Comment D-Dimer, Quantitative Sodium 141 Potassium 3.2 L Chloride 105 Carbon Dioxide 27 Anion Gap 12.2 BUN 10 Creatinine 0.60 L GFR Calculation 123 BUN/Creatinine Ratio 16.00 Glucose 82 Calculated Osmolality 278.3 Calcium 8.1 L Total Bilirubin 1.30 H AST 74 H ALT 69 H Alkaline Phosphatase 119 H Total Creatine Kinase CK-MB (CK-2) Troponin I B-Natriuretic Peptide Total Protein 6.9 Albumin 3.6 Globulin 3.3 Albumin/Globulin Ratio 1.0 L Triglycerides 101 Cholesterol 155 LDL Cholesterol 78.0 VLDL Cholesterol 20.2 HDL Cholesterol 68 H Heart Disease Risk Ratio 2.28 TSH 3rd Generation Urine Color Urine Appearance Urine pH Ur Specific [place] Urine Protein Urine Glucose (UA) Urine Ketones Urine Blood Urine Nitrate Urine Bilirubin Urine Urobilinogen Urine Leukocytes Urine RBC Urine WBC Ur Squamous Epith Cells Urine Mucus Ur Culture Indicated? Urine Opiates Screen Ur Barbiturates Screen Ur Phencyclidine Scrn U Amphetamine/Methamph U Benzodiazepines Scrn U Cocaine Metab Screen U Cannabinoids Screen Rheumatoid Factor 62 H Hepatitis A IgM Ab Hep Bs Antigen Hep B Core IgM Ab Hepatitis C Antibody 09/02/16 06:06 WBC RBC Hgb Hct MCV MCH MCHC RDW Plt Count MPV Neut % (Auto) Lymph % (Auto) [place] % (Auto) Eos % (Auto) Baso % (Auto) Neut # (Auto) Lymph # (Auto) [place] # (Auto) Eos # (Auto) Baso # (Auto) Immature Gran % Nucleated RBC % Immature Gran # Nucleated RBCs # Platelet Estimate Hypochromasia Microcytosis Morphology Comment D-Dimer, Quantitative Sodium Potassium Chloride Carbon Dioxide Anion Gap BUN Creatinine GFR Calculation BUN/Creatinine Ratio Glucose Calculated Osmolality Calcium Total Bilirubin AST ALT Alkaline Phosphatase Total Creatine Kinase 107 D CK-MB (CK-2) < 1.0 Troponin I < 0.015 B-Natriuretic Peptide Total Protein Albumin Globulin Albumin/Globulin Ratio Triglycerides Cholesterol LDL Cholesterol VLDL Cholesterol HDL Cholesterol Heart Disease Risk Ratio TSH 3rd Generation Urine Color Urine Appearance Urine pH Ur Specific [place] Urine Protein Urine Glucose (UA) Urine Ketones Urine Blood Urine Nitrate Urine Bilirubin Urine Urobilinogen Urine Leukocytes Urine RBC Urine WBC Ur Squamous Epith Cells Urine Mucus Ur Culture Indicated? Urine Opiates Screen Ur Barbiturates Screen Ur Phencyclidine Scrn U Amphetamine/Methamph U Benzodiazepines Scrn U Cocaine Metab Screen U Cannabinoids Screen Rheumatoid Factor Hepatitis A IgM Ab Hep Bs Antigen Hep B Core IgM Ab Hepatitis C Antibody - Diagnostic Findings Procedure: Chest x-ray: report reviewed by me, CT: report reviewed by me, Ultrasound: report reviewed by me (Carotid) - EKG EKG results: interpreted by me EKG shows: sinus rhythm <Vishnu Hilton - Last Filed: 09/02/16 16:59> History of Present Illness - Consult Narrative History of present illness: Mr. Mims is a 56 year old male who presents with chest pain pancytopenia subtherapeutic anticoagulation for his mechanical aortic valve. We are adjusting medications and will review a 2D echocardiogram. His chest pain is clearly chest wall related to recent coughing. He had a presyncopal episode which likely was related to that as well. Workup continues. CC: Paz Aleman MD Physical Examination Vital Signs Temp Pulse Resp BP Pulse Ox 97.8 F 95 H 18 163/98 98 09/01/16 15:07 09/01/16 15:07 09/01/16 15:07 09/01/16 15:07 09/01/16 15:07 Result/EKG - Labs CBC & BMP: 09/02/16 06:06 09/02/16 06:06 Labs: Laboratory Results - last 24 hr 09/01/16 09/01/16 09/01/16 17:33 17:33 19:39 WBC RBC Hgb Hct MCV MCH MCHC RDW Plt Count MPV Neut % (Auto) Lymph % (Auto) [place] % (Auto) Eos % (Auto) Baso % (Auto) Neut # (Auto) Lymph # (Auto) [place] # (Auto) Eos # (Auto) Baso # (Auto) Immature Gran % Nucleated RBC % Immature Gran # Nucleated RBCs # Platelet Estimate Hypochromasia Microcytosis Morphology Comment D-Dimer, Quantitative Sodium Potassium Chloride Carbon Dioxide Anion Gap BUN Creatinine GFR Calculation BUN/Creatinine Ratio Glucose Calculated Osmolality Calcium Total Bilirubin AST ALT Alkaline Phosphatase Total Creatine Kinase CK-MB (CK-2) Troponin I < 0.015 B-Natriuretic Peptide Total Protein Albumin Globulin Albumin/Globulin Ratio Triglycerides Cholesterol LDL Cholesterol VLDL Cholesterol HDL Cholesterol Heart Disease Risk Ratio Amylase Lipase TSH 3rd Generation Urine Color Yellow Urine Appearance Clear Urine pH 7.0 Ur Specific [place] 1.009 Urine Protein Negative Urine Glucose (UA) Negative Urine Ketones Negative Urine Blood Negative Urine Nitrate Negative Urine Bilirubin Negative Urine Urobilinogen < 2.0 H Urine Leukocytes Negative Urine RBC <1 Urine WBC 1 Ur Squamous Epith Cells Occasional Urine Mucus Occasional Ur Culture Indicated? Not indicated Urine Opiates Screen Negative Ur Barbiturates Screen Negative Ur Phencyclidine Scrn Negative U Amphetamine/Methamph Negative U Benzodiazepines Scrn Negative U Cocaine Metab Screen Negative U Cannabinoids Screen Negative Rheumatoid Factor Hepatitis A IgM Ab Hep Bs Antigen Hep B Core IgM Ab Hepatitis C Antibody 09/01/16 09/01/16 09/01/16 20:13 20:13 20:13 WBC RBC Hgb Hct MCV MCH MCHC RDW Plt Count MPV Neut % (Auto) Lymph % (Auto) [place] % (Auto) Eos % (Auto) Baso % (Auto) Neut # (Auto) Lymph # (Auto) [place] # (Auto) Eos # (Auto) Baso # (Auto) Immature Gran % Nucleated RBC % Immature Gran # Nucleated RBCs # Platelet Estimate Hypochromasia Microcytosis Morphology Comment D-Dimer, Quantitative 0.9 Sodium Potassium Chloride Carbon Dioxide Anion Gap BUN Creatinine GFR Calculation BUN/Creatinine Ratio Glucose Calculated Osmolality Calcium Total Bilirubin AST ALT Alkaline Phosphatase Total Creatine Kinase CK-MB (CK-2) Troponin I B-Natriuretic Peptide 8 Total Protein Albumin Globulin Albumin/Globulin Ratio Triglycerides Cholesterol LDL Cholesterol VLDL Cholesterol HDL Cholesterol Heart Disease Risk Ratio Amylase Lipase TSH 3rd Generation 1.230 Urine Color Urine Appearance Urine pH Ur Specific [place] Urine Protein Urine Glucose (UA) Urine Ketones Urine Blood Urine Nitrate Urine Bilirubin Urine Urobilinogen Urine Leukocytes Urine RBC Urine WBC Ur Squamous Epith Cells Urine Mucus Ur Culture Indicated? Urine Opiates Screen Ur Barbiturates Screen Ur Phencyclidine Scrn U Amphetamine/Methamph U Benzodiazepines Scrn U Cocaine Metab Screen U Cannabinoids Screen Rheumatoid Factor Hepatitis A IgM Ab Hep Bs Antigen Hep B Core IgM Ab Hepatitis C Antibody 09/01/16 09/01/16 09/01/16 20:13 20:13 21:24 WBC RBC Hgb Hct MCV MCH MCHC RDW Plt Count MPV Neut % (Auto) Lymph % (Auto) [place] % (Auto) Eos % (Auto) Baso % (Auto) Neut # (Auto) Lymph # (Auto) [place] # (Auto) Eos # (Auto) Baso # (Auto) Immature Gran % Nucleated RBC % Immature Gran # Nucleated RBCs # Platelet Estimate Hypochromasia Microcytosis Morphology Comment D-Dimer, Quantitative Sodium Potassium Chloride Carbon Dioxide Anion Gap BUN Creatinine GFR Calculation BUN/Creatinine Ratio Glucose Calculated Osmolality Calcium Total Bilirubin AST ALT Alkaline Phosphatase Total Creatine Kinase 150 CK-MB (CK-2) < 1.0 Troponin I < 0.015 < 0.015 B-Natriuretic Peptide Total Protein Albumin Globulin Albumin/Globulin Ratio Triglycerides Cholesterol LDL Cholesterol VLDL Cholesterol HDL Cholesterol Heart Disease Risk Ratio Amylase Lipase TSH 3rd Generation Urine Color Urine Appearance Urine pH Ur Specific [place] Urine Protein Urine Glucose (UA) Urine Ketones Urine Blood Urine Nitrate Urine Bilirubin Urine Urobilinogen Urine Leukocytes Urine RBC Urine WBC Ur Squamous Epith Cells Urine Mucus Ur Culture Indicated? Urine Opiates Screen Ur Barbiturates Screen Ur Phencyclidine Scrn U Amphetamine/Methamph U Benzodiazepines Scrn U Cocaine Metab Screen U Cannabinoids Screen Rheumatoid Factor Hepatitis A IgM Ab Negative Hep Bs Antigen Negative Hep B Core IgM Ab Negative Hepatitis C Antibody Negative 09/02/16 09/02/16 09/02/16 06:04 06:04 06:06 WBC 3.2 L D RBC 4.21 Hgb 11.2 L Hct 34.6 L MCV 82.2 L MCH 27 MCHC 32.4 RDW 18.6 H Plt Count 66 L MPV 9.5 L Neut % (Auto) 49.2 Lymph % (Auto) 31.0 [place] % (Auto) 11.5 Eos % (Auto) 7.1 Baso % (Auto) 0.9 H Neut # (Auto) 1.6 Lymph # (Auto) 1.0 L [place] # (Auto) 0.4 Eos # (Auto) 0.2 Baso # (Auto) 0.0 Immature Gran % 0.3 Nucleated RBC % 0.0 Immature Gran # 0.01 Nucleated RBCs # 0.00 Platelet Estimate Decreased Hypochromasia 1+ Microcytosis Slight Morphology Comment D-Dimer, Quantitative Sodium Potassium Chloride Carbon Dioxide Anion Gap BUN Creatinine GFR Calculation BUN/Creatinine Ratio Glucose Calculated Osmolality Calcium Total Bilirubin AST ALT Alkaline Phosphatase Total Creatine Kinase CK-MB (CK-2) Troponin I B-Natriuretic Peptide Total Protein Albumin Globulin Albumin/Globulin Ratio Triglycerides Cholesterol LDL Cholesterol VLDL Cholesterol HDL Cholesterol Heart Disease Risk Ratio Amylase 46 Lipase 160.0 D TSH 3rd Generation Urine Color Urine Appearance Urine pH Ur Specific [place] Urine Protein Urine Glucose (UA) Urine Ketones Urine Blood Urine Nitrate Urine Bilirubin Urine Urobilinogen Urine Leukocytes Urine RBC Urine WBC Ur Squamous Epith Cells Urine Mucus Ur Culture Indicated? Urine Opiates Screen Ur Barbiturates Screen Ur Phencyclidine Scrn U Amphetamine/Methamph U Benzodiazepines Scrn U Cocaine Metab Screen U Cannabinoids Screen Rheumatoid Factor 62 H Hepatitis A IgM Ab Hep Bs Antigen Hep B Core IgM Ab Hepatitis C Antibody 09/02/16 09/02/16 06:06 06:06 WBC RBC Hgb Hct MCV MCH MCHC RDW Plt Count MPV Neut % (Auto) Lymph % (Auto) [place] % (Auto) Eos % (Auto) Baso % (Auto) Neut # (Auto) Lymph # (Auto) [place] # (Auto) Eos # (Auto) Baso # (Auto) Immature Gran % Nucleated RBC % Immature Gran # Nucleated RBCs # Platelet Estimate Hypochromasia Microcytosis Morphology Comment D-Dimer, Quantitative Sodium 141 Potassium 3.2 L Chloride 105 Carbon Dioxide 27 Anion Gap 12.2 BUN 10 Creatinine 0.60 L GFR Calculation 123 BUN/Creatinine Ratio 16.00 Glucose 82 Calculated Osmolality 278.3 Calcium 8.1 L Total Bilirubin 1.30 H AST 74 H ALT 69 H Alkaline Phosphatase 119 H Total Creatine Kinase 107 D CK-MB (CK-2) < 1.0 Troponin I < 0.015 B-Natriuretic Peptide Total Protein 6.9 Albumin 3.6 Globulin 3.3 Albumin/Globulin Ratio 1.0 L Triglycerides 101 Cholesterol 155 LDL Cholesterol 78.0 VLDL Cholesterol 20.2 HDL Cholesterol 68 H Heart Disease Risk Ratio 2.28 Amylase Lipase TSH 3rd Generation Urine Color Urine Appearance Urine pH Ur Specific [place] Urine Protein Urine Glucose (UA) Urine Ketones Urine Blood Urine Nitrate Urine Bilirubin Urine Urobilinogen Urine Leukocytes Urine RBC Urine WBC Ur Squamous Epith Cells Urine Mucus Ur Culture Indicated? Urine Opiates Screen Ur Barbiturates Screen Ur Phencyclidine Scrn U Amphetamine/Methamph U Benzodiazepines Scrn U Cocaine Metab Screen U Cannabinoids Screen Rheumatoid Factor Hepatitis A IgM Ab Hep Bs Antigen Hep B Core IgM Ab Hepatitis C Antibody
--- NOTE | 2016-09-02 12:35 | Hospitalist Progress Note ---
Assessment and Plan (1) Near syncope Status: Acute Assessment and plan: 1)near syncope- happened when coughing abruptly and hard. None since. no arrhythmia on monitor. 2)chest pain- sore after coughing. troponins all negative. 3)AVR- valve click audible on exam. He is not taking his coumadin because he doesn't like to wait in line at [facility] coumadin clinic. On lovenox for now. Consider change to another anticoagulant. 4)HTN 5)pancytopenia- appreciate Dr Arreaga's evaluation. Will stop the ARB as it could be causing the cough as well as the cytopenias. also stop colchicine. suspect he may drink more alcohol than he admits. liver US looked ok. 6)URI 7)abnormal liver enzymes- suspect alcohol as cause. viral hepatitis screen negative. liver US ok. Current Visit: Yes (2) Leukopenia Status: Acute Current Visit: No (3) Chest pain Status: Acute Current Visit: Yes (4) Thrombocytopenia Status: Chronic Current Visit: No (5) S/P AVR (aortic valve replacement) Status: Chronic Current Visit: No (6) Medical non-compliance Status: Acute Current Visit: Yes (7) URI (upper respiratory infection) Status: Acute Current Visit: Yes (8) Glaucoma Status: Acute Current Visit: Yes (9) Abnormal liver enzymes Status: Acute Current Visit: Yes Hospitalist: Subjective Interval history: Mr Mims feels ok this morning. He has had upper respiratory sinus allergy symptoms since the start of Spring. The cough did not start until 2 weeks ago. Yesterday he was coughing hard and got a little dizzy but did not pass out. He says his chest is sore and that his chest pain came from his coughing. His appetite is ok. Exam - Constitutional Vitals: Period Temp Pulse Resp BP Sys/Jean Pulse Ox Last 24 Hr 97.7 F-98.6 F 60-77 15-20 121-144/70-88 93-97 General appearance: no acute distress, over weight - Head Head exam: Present: normocephalic, atraumatic - Eye Eye exam: Present: EOMI. Absent: scleral icterus - Respiratory Respiratory exam: Present: clear to auscultation bilaterally - Cardiovascular Cardiovascular exam: Present: regular rate and rhythm, other (chest tender to palpation across the center of his chest. ) - GI/Abdominal GI/Abdominal exam: Present: normal bowel sounds, soft. Absent: tenderness - Extremities Exam Extremities exam: Absent: edema - Neurological Exam Neurological exam: Present: alert, oriented X3 - Skin Skin exam: Present: warm, dry Results - Labs CBC & BMP: 09/02/16 06:06 09/02/16 06:06 Lab Results: I have reviewed the past 24 hour labs
[2016-09-02] MEDS: FLUTICASONE 50 MCG NASAL SPRAY 16 GM BOTTLE BOTH NARES SCH ×2 (13:09→22:10)
[2016-09-02] MEDS: SUCRALFATE 1 GM TABLET PO SCH ×2 (13:09→15:46)
[2016-09-02] MEDS: POTASSIUM CHLORIDE 20 MEQ TABLET PO SCH ×2 (14:32→18:54)
[2016-09-02] MEDS: ASPIRIN EC 81 MG TABLET PO SCH (14:32)
[2016-09-02] MEDS: THIAMINE 100 MG TABLET PO SCH (14:32)
[2016-09-02] MEDS ORDERED: OXYMETAZOLINE 0.05% NASAL SPRAY 15 ML BOTTLE BOTH NARES STA (15:16)
[2016-09-02] MEDS: BENZONATATE 100 MG CAPSULE PO SCH ×2 (15:46→22:02)
[2016-09-02] MEDS ORDERED: MAGNESIUM SULF RIDER 2 GM in PREMIX 1 EACH IV PRN (16:52)
[2016-09-02] MEDS ORDERED: MAGNESIUM SULF RIDER 4 GM in PREMIX 1 EACH IV PRN (16:52)
--- NOTE | 2016-09-02 18:12 | ECHO Report ---
Emmanuel Mims Exam Date: 09/02/2016 10:10 Referring Physician: Technologist: Skylar Stockton Age: 56 Ht (in): 66 Wt (lb): 64 Gender: M Exam Location: [facility] Echo Indications: hx AVR, Chest pain, unspecified, Shortness of breath, Near syncope, Hypokalemia, Thrombocyopenia BP: 124 / 83 HR: 77 Rhythm: Sinus Technical Quality: Fair IMPRESSIONS Normal left ventricular cavity size. Moderate left ventricular hypertrophy. Left ventricular ejection fraction is estimated at 50-55 %. The right ventricle is normal in size and function. The right atrium is normal in size. The left atrium is normal in size. Mildly thickened mitral valve. Mild mitral annular calcification. Trace mitral valve regurgitation. Mechanical aortic valve. Mean gradient 16 mmHg, RICCARDO 1.6 cm. Trace prosthetic aortic valve regurgitation. Morphologically normal tricuspid valve. Trace to mild tricuspid valve regurgitation. Tricuspid regurgitation velocities suggest a PAP of 44 mmHg. Morphologically normal pulmonic valve without significant stenosis. There is no pulmonic regurgitation. Normal pericardium without effusion. Normal ascending aorta dimension. MEASUREMENTS (Male / Female) Normal Values 2D ECHO LV Diastolic Diameter PLAX 4.4 cm 4.2 - 5.9 / 3.9 - 5.3 cm LV Systolic Diameter PLAX 3.5 cm LV Fractional Shortening PLAX 21.7 % IVS Diastolic Thickness 1.6 cm 0.6 - 1.0 / 0.6 - 0.9 cm LVPW Diastolic Thickness 1.5 cm 0.6 - 1.0 / 0.6 - 0.9 cm RV Internal Dim ED PLAX 3.1 cm Aortic Root Diameter 3.0 cm LA Systolic Diameter LX 3.9 cm 3.0 - 4.0 / 2.7 - 3.8 cm DOPPLER TR Peak Velocity 291.0 cm/s TR Peak Gradient 33.9 mmHg FINDINGS Left Ventricle Normal left ventricular cavity size. Moderate left ventricular hypertrophy. Left ventricular ejection fraction is estimated at 50-55 %. Right Ventricle The right ventricle is normal in size and function. Right Atrium The right atrium is normal in size. Left Atrium The left atrium is normal in size. Mitral Valve Mildly thickened mitral valve. Mild mitral annular calcification. Trace mitral valve regurgitation. Aortic Valve Mechanical aortic valve. Mean gradient 16 mmHg, RICCARDO 1.6 cm. Trace prosthetic aortic valve regurgitation. Tricuspid Valve Morphologically normal tricuspid valve. Trace to mild tricuspid valve regurgitation. Tricuspid regurgitation velocities suggest a PAP of 44 mmHg. Pulmonic Valve Morphologically normal pulmonic valve without significant stenosis. There is no pulmonic regurgitation. Pericardium Normal pericardium without effusion. Aorta Normal ascending aorta dimension. Vishnu Hilton MD (Electronically Signed) Final Date: 02 Sep 2016 18:11
[2016-09-02] MEDS: METOPROLOL TARTRATE 25 MG TABLET PO SCH (22:03)
[2016-09-02] MEDS: WARFARIN 5 MG TABLET PO SCH (22:03)
[2016-09-03 05:31] LABS: Basophils % 0.3 % (0.0-0.8); Eosinophils # 0.3 10*3/uL (0.0-0.87); Eosinophils % 8.5 % (0.00-10.9); Hematocrit 34.1 VOL% (42.0-52.0); Hemoglobin 11.1 GM/DL (14.0-18.0); Immature Granulocytes % 0.6 %; Immature Granulocytes Absolute 0.02 #; Lymphocytes % 30.1 % (21.2-54.2); Mean Corpuscular HGB Conc 32.6 GM/DL (32-36); Mean Corpuscular Hemoglobin 27 PG (27-34); Mean Corpuscular Volume 82.4 FL (87-102); Mean Platelet Volume 9.6 FL (9.6-12.0); Monocytes # 0.4 10*3/uL (0.11-0.8); Monocytes % 11.6 % (1.7-12.7); Neutrophils # 1.6 10*3/uL (1.4-7.4); Neutrophils % 48.9 % (38.7-73.9); Platelet Count 59 T/CUMM (130-400); Red Blood Count 4.14 MC/CUMM (3.8-5.5); White Blood Count 3.2 T/CUMM (4-12)
[2016-09-03 05:44] LABS: INR 1.2; PT Patient Result 12.9 SECS
[2016-09-03 06:00] LABS: Calcium 8.2 MG/DL (8.5-10.1); Eosinophils 6 % (0-10); Hypochromasia 1+; Lymphocytes 30 % (20-55); Magnesium 2.2 MG/DL (1.8-2.4); Osmolality,Calculated 275.4 MOS/KG (273-304); Ovalocytes Slight; Platelet Estimate Decreased; Potassium 3.6 MMOL/L (3.5-5.1); Segmented Neutrophils 56 % (50-85); Total Cells Counted 100
[2016-09-03 06:01] LABS: Microcytosis Slight
[2016-09-03 06:03] LABS: Calcium 8.1 MG/DL (8.5-10.1); Osmolality,Calculated 277.3 MOS/KG (273-304); Potassium 3.7 MMOL/L (3.5-5.1)
--- NOTE | 2016-09-03 07:11 | Oncology Progress Note ---
Oncology Subjective PN Interval history: Mr. Mims was admitted with thrombocytopenia and actually with leukopenia and mild anemia. His liver enzymes were modestly elevated. He has had an ultrasound of the liver that is normal but he has not had an abdominal CT which probably needs to be considered in order to evaluate the size of his spleen. I cannot palpate his spleen but if he has splenomegaly, this could be contributing to his thrombocytopenia. An antinuclear antibody is pending. Lab work today includes a white cell count 3200 with an absolute neutrophil count of 1600. His hemoglobin is 11.1 and his platelet count is 59,000. His comprehensive metabolic profile done yesterday includes a total bilirubin of 1.3 with an AST of 74 and an ALT of 69 and his alkaline phosphatase is 119. He has been tested for hepatitis and the studies are negative. His rheumatoid factor is positive. Toxicology screen is negative. Exam - Constitutional Vitals: Period Temp Pulse Resp BP Sys/Jean Pulse Ox Last 24 Hr 97.6 F-98.9 F 62-77 16-20 116-124/68-83 93-97 Results - Labs CBC & BMP: 09/03/16 05:00 09/03/16 05:00
--- NOTE | 2016-09-03 08:10 | Ultrasound Report ---
Exam: US abdomen limited attention spleen Date: 09/03/2016 7:32 AM Indication: Thrombocytopenia Comparison: Right upper quadrant sonogram 09/01/2016. Findings: The spleen measures 13.7 x 6.5 x 5.7 cm. The left kidney measures 10.7 x 4.9 x 5.2 cm. No obvious ascites present. No focal mass is present. Normal color flow in the spleen. Impression: 1. Mild splenomegaly without focal mass lesions. PROCEDURE INTERPRETED AT [facility] DEPARTMENT OF RADIOLOGY Final Report Signed by: Dr. Teja Early
--- NOTE | 2016-09-03 08:40 | Hospitalist Progress Note ---
Assessment and Plan - Time spent with patient Time spent with patient: Less than 30 minutes (1) Hypertension Status: Chronic Assessment and plan: 56-year-old male admitted on 09/01/2016 with near syncope due to upper respiratory infection, subtherapeutic INR due to noncompliance on his Coumadin for status post AVR, and pancytopenia. Dr. Aleman is seen and examined patient and further recommendations to follow. Near syncope/URI--this happened when he was coughing abruptly and hard. He has had no episodes since then. No arrhythmias on his monitor. He has Tylenol, Tessalon Perles, Mucinex, and Flonase ordered for his URI Chest pain--most likely chest wall pain. Troponins are negative. AVR/subtherapeutic INR--patient has a valve click audible on exam. He was not taking his Coumadin and this is been restarted at 5 mg p.o. at bedtime. His INR still subtherapeutic at 1.2. Patient cannot take Lovenox due to his pancytopenia. Cardiology has okayed patient for discharge with a 2-3 week follow-up with Dr. Liu and INR check on Wednesday at [facility]. Pancytopenia--Dr. Arreaga is following. His ARB, and colchicine have been stopped. His liver ultrasound looks okay and abdominal ultrasound shows a mild splenomegaly. Will check with Dr. Arreaga and see if it is okay for discharge with him and when he would like follow-up. Abnormal liver enzymes--these are stable at this time. This is most likely alcohol use. Viral hepatitis screen was negative and liver ultrasound was fine. Sleep apnea--we will consult Dr. Sexton for evaluation. If all this can be obtained today patient may be able to be discharged later this afternoon. Current Visit: No Qualifiers: Hypertension type: essential hypertension Qualified Code(s): I10 - Essential (primary) hypertension (2) S/P AVR (aortic valve replacement) Status: Chronic Current Visit: No (3) Atypical chest pain Status: Acute Current Visit: Yes (4) Near syncope Status: Resolved Current Visit: Yes (5) Pancytopenia Status: Acute Current Visit: Yes (6) URI (upper respiratory infection) Status: Acute Current Visit: Yes (7) Glaucoma Status: Acute Current Visit: Yes (8) Abnormal liver enzymes Status: Acute Current Visit: Yes Hospitalist: Subjective Interval history: Patient states he is feeling a lot better than he did when he came in. He understands the importance of his medication noncompliance. He also mentioned something about snoring at night and having trouble sleeping and his snores waking him up. Otherwise he is doing well. He is eating and drinking and having normal bowel movements. Exam - Constitutional Vitals: Period Temp Pulse Resp BP Sys/Jean Pulse Ox Last 24 Hr 97.6 F-98.9 F 62-74 16-20 116-126/68-83 93-97 Exam: 56-year-old male, no acute distress Chest clear CV regular rate and rhythm, audible click Abdomen soft and nontender Extremities no edema Results - Labs CBC & BMP: 09/03/16 05:00 09/03/16 05:00 Lab Results: I have reviewed the past 24 hour labs - Diagnostic Findings Procedure: Ultrasound: report reviewed by me (Abdominal ultrasound shows mild splenomegaly without focal mass lesions)
[2016-09-03] MEDS: BENZONATATE 100 MG CAPSULE PO SCH (09:37)
[2016-09-03] MEDS: ASPIRIN EC 81 MG TABLET PO SCH (09:38)
[2016-09-03] MEDS: METOPROLOL TARTRATE 25 MG TABLET PO SCH (09:38)
[2016-09-03] MEDS: SUCRALFATE 1 GM TABLET PO SCH (09:38)
[2016-09-03] MEDS: THIAMINE 100 MG TABLET PO SCH (09:38)
[2016-09-03] MEDS: DORZOLAMIDE 2% OPH SOLN 10 ML BOTTLE BOTH EYES SCH (09:38)
[2016-09-03] MEDS: BRIMONIDINE 0.1% OPH SOLN 5 ML BOTTLE BOTH EYES SCH (09:39)
--- NOTE | 2016-09-03 11:22 | Discharge Summary ---
Hospital Course - Hospital Course Hospital Course: Mr. Mims is a 56-year-old male who was admitted on 09/01/2016 with near syncope due to upper respiratory infection, subtherapeutic INR due to noncompliance on his Coumadin for AVR, and pancytopenia. It was believed patient had a near syncopal episode due to coughing abruptly and hard due to his upper respiratory infection. he has had no episodes since that time. He has been given Tylenol, Tessalon Perles, Mucinex and Flonase to treat his upper respiratory infection and he is feeling much better. Patient did have some complaints of chest pain but this is mostly chest wall pain due to severe coughing. His troponins have been negative. Cardiology has seen and examined patient and treated for his subtherapeutic INR. His Coumadin has been restarted at 5 mg p.o. at bedtime. His INR is subtherapeutic at this time at 1.2. He will follow[facility] with [facility] on Wednesday with INR checks and his INR will be called in to Dr. Liu. He will need to follow-up with Dr. Liu in 2-3 weeks as well. Patient cannot take Lovenox due to his pancytopenia. Dr. Arreaga was consulted for this. He recommended stopping his ARB and his colchicine which has been done. Patient's liver ultrasound is okay and an abdominal ultrasound showing mild splenomegaly. Patient will need to follow-up with PCP at [facility] for platelet monitoring. If his platelets do not improve or continue to worsen he will need to see Dr. Arreaga clinic. Patient does have some questionable sleep apnea and Dr. Sexton for sleep medicine has been consulted. Following this consult patient can be discharged to home with follow-up and labs as previously mentioned. Patient's case has been coordinated with Cara Elias for cardiology, drug abuse social worker patient and nursing staff. Case coordination, chart review, and discharge paperwork took approximately 38 minutes. - Time spent with patient Time with patient DS: Greater than 30 minutes Diagnosis - Discharge Diagnosis (1) Hypertension Status: Chronic (2) S/P AVR (aortic valve replacement) Status: Chronic (3) Atypical chest pain Status: Resolved (4) Near syncope Status: Resolved (5) Pancytopenia Status: Acute (6) URI (upper respiratory infection) Status: Resolved (7) Glaucoma Status: Chronic (8) Abnormal liver enzymes Status: Chronic Discharge Plan - Discharge Data Disposition: Disch To Home/Self Care Condition at Discharge: Stable Discharge Diet: heart healthy Activity: resume usual activities as tolerated Hygiene: no restrictions Driving: no restrictions Contact your physician if you experience:: Shortness of breath - Discharge Medications New Benzonatate [Tessalon] 200 mg PO TID #30 capsule Fluticasone 50 Mcg Nasal [place] [Flonase Nasal [place]] 1 spray BOTH NARES BID # 1 spray Metoprolol Tartrate Tab [Lopressor Tab] 12.5 mg PO BID #60 tablet guaiFENesin/DM ER 600-30 [Mucinex Dm 600-30 MG] 1 tablet PO BID PRN #0 tablet PRN Reason: Congestion Warfarin [Coumadin] 5 mg PO 2100 #30 tablet Continue Brimonidine 0.1% Oph Soln [Alphagan P 0.1% Oph Soln] 1 drop BOTH EYES TID ophthalmic solution Dorzolamide 2% Oph Soln [Trusopt 2% Oph Soln] 1 drop BOTH EYES TID ophthalmic solution Thiamine Tab [Vitamin B1 Tab] 100 mg PO DAILY tablet Travoprost 0.004% Oph Soln [Travatan Z] 1 drop BOTH EYES BEDTIME ophthalmic solution Bisacodyl Tab [Dulcolax Tab] 10 mg PO BEDTIME PRN PRN Reason: contipat Aspirin EC Tab 81 mg PO DAILY #30 tablet Latanoprost [Latanoprost 0.005 % Oph Soln] 1 drop BOTH EYES BEDTIME Discontinued Colchicine 0.6 mg PO DAILY Losartan [Cozaar] 50 mg PO DAILY - Follow Up or Referral Follow Up: José Liu MD [Physician] - 2 Weeks [facility] [Provider Group] (Follow-up Wednesday for INR, fax results to Dr. José Liu at [facility]. Also follow-up next week with PCP for CBC to follow platelet count) - Forms/Instructions Exam - Constitutional Vitals: Period Temp Pulse Resp BP Sys/Jean Pulse Ox Last 24 Hr 97.6 F-98.9 F 62-74 16-20 116-126/68-83 93-97 Exam: 56-year-old male, no acute distress, alert and oriented Chest clear CV regular rate and rhythm, audible click Abdomen obese and nontender Extremities no edema Discharge Results Procedures and tests throughout hospitalization: Pending Orders 09/04/16 04:00 BMP w/ Mg [Basic Metabolic Panel w/Mg] IN AM Comprehensive Metabolic Panel IN AM LDH [Lactate Dehydrogenase] IN AM Prothrombin Time INR IN AM 09/05/16 04:00 Prothrombin Time INR IN AM 09/06/16 04:00 Prothrombin Time INR IN AM Labs on day of discharge: Labs from last 24 hours 09/03/16 09/03/16 09/03/16 05:00 05:00 05:00 WBC 3.2 L RBC 4.14 Hgb 11.1 L Hct 34.1 L MCV 82.4 L MCH 27 MCHC 32.6 RDW 18.0 H Plt Count 59 L MPV 9.6 Neut % (Auto) 48.9 Lymph % (Auto) 30.1 [place] % (Auto) 11.6 Eos % (Auto) 8.5 Baso % (Auto) 0.3 Neut # (Auto) 1.6 Lymph # (Auto) 1.0 L [place] # (Auto) 0.4 Eos # (Auto) 0.3 Baso # (Auto) 0.0 Total Counted 100 Immature Gran % 0.6 Nucleated RBC % 0.0 Immature Gran # 0.02 Segmented Neutrophils 56 Lymphocytes 30 Monocytes 7 Eosinophils 6 Basophils 1.0 H Nucleated RBCs # 0.00 Platelet Estimate Decreased Hypochromasia 1+ Microcytosis Slight Ovalocytes Slight Morphology Comment INR 1.2 PT Patient/Control Mix 12.9 Sodium 141 Potassium 3.7 Chloride 106 Carbon Dioxide 26 Anion Gap 12.7 BUN 7 Creatinine 0.60 L GFR Calculation 123 BUN/Creatinine Ratio 11.00 Glucose 80 Calculated Osmolality 277.3 Calcium 8.1 L Magnesium Amylase Lipase OSEI Screen 09/03/16 09/02/16 09/02/16 05:00 06:04 06:04 WBC RBC Hgb Hct MCV MCH MCHC RDW Plt Count MPV Neut % (Auto) Lymph % (Auto) [place] % (Auto) Eos % (Auto) Baso % (Auto) Neut # (Auto) Lymph # (Auto) [place] # (Auto) Eos # (Auto) Baso # (Auto) Total Counted Immature Gran % Nucleated RBC % Immature Gran # Segmented Neutrophils Lymphocytes Monocytes Eosinophils Basophils Nucleated RBCs # Platelet Estimate Hypochromasia Microcytosis Ovalocytes Morphology Comment INR PT Patient/Control Mix Sodium 140 Potassium 3.6 Chloride 106 Carbon Dioxide 25 Anion Gap 12.6 BUN 7 Creatinine 0.60 L GFR Calculation 123 BUN/Creatinine Ratio 11.00 Glucose 81 Calculated Osmolality 275.4 Calcium 8.2 L Magnesium 2.2 Amylase 46 Lipase 160.0 D OSEI Screen Negative (<1:160) DS: Provider Date of admission: 09/01/16 16:43 Primary care physician: Korin Haney MD Attending physician on admission: Sandra Morillo MD Consults: 09/01/16 20:03 Consult to Physician [CONS] Routine Comment: Consulting Provider: Consult to Physician [CONS] Routine Comment: near syncope Consulting Provider: Fahad Michelle When should Consulting Provider be notified: In am Consult to Specialist Group: Cardiology When should Consulting Provider be notified: In am Person Notified: LINDA Date Notified: 09/02/16 Time Notified: 07:50 Consult to Physician [CONS] Routine Comment: pancytopenia Consulting Provider: Paulino Arreaga Consult to Specialist Group: Hematology When should Consulting Provider be notified: In am Person Notified: LANIE Date Notified: 09/02/16 Time Notified: 10:55 Consult Notification Comment: LANIE AWARE OF CONSULT AND DR. ARREAGA SAW PATIENT EARLIER 09/01/16 20:20 Consult to Pharmacy [CONS] Routine Reason for Pharmacy Consult: Other Comment: COUMADIN DOSING 09/01/16 20:33 Consult to Pastoral Services [CONS] Routine Comment: Pastoral Screen: Request Family And Consumer Education Teacher Visit Pastoral Screen Source of Request: Patient 09/03/16 08:48 Consult to Physician [CONS] Routine Comment: sleep apnea?, snoring Consulting Provider: Amie Sexton When should Consulting Provider be notified: Now Discharging clinician: MARCELA Esparza Expected date of discharge: 09/03/16
[2016-09-03 11:47] VITALS: BP 100/59
[2016-09-03] MEDS: FLUTICASONE 50 MCG NASAL SPRAY 16 GM BOTTLE BOTH NARES SCH (12:20)
--- NOTE | 2016-09-03 13:09 | Sleep Medicine Consult ---
Assessment and Plan (1) Unspecified sleep apnea Status: Acute Assessment and plan: His symptoms certainly are concerning for sleep apnea. With his history of snoring and abnormal breathing during sleep and severity of sleepiness and comorbidities, polysomnography is indicated. We will set him up at the [facility] sleep center due to his residence being there. Thank you for this consult. Current Visit: Yes (2) HTN (hypertension) Status: Acute Assessment and plan: The prevalence rate for obstructive sleep apnea patients with hypertension is 35 %. That rate can be as high as 80% in patients who require 4 or more medications for blood pressure control. Current Visit: No History of Present Illness Chief complaint: Sleep apnea History of present illness: Mr. Mims is a 56 year old male admitted with shortness of breath and weakness. He has a history of previous aortic valve replacement. During the course of his evaluation, it was noted that he had a history of snoring and disrupted sleep. He usually retires about 10 PM and awakens about 7 in the morning. He awakens multiple times at night and has a history of loud snoring. He awakens with sensations of shortness of breath but is never been told that he stops breathing during his sleep. He does have problems with nocturia, awakening up to 4 times a night to urinate. He is bothered by significant sleepiness during the day, having an [place] sleepiness score of over 12. Home Medications Medication Instructions Recorded Confirmed Type Brimonidine 0.1% Oph Soln 1 drop BOTH EYES TID ophthalmic 02/21/16 09/01/16 Rx [Alphagan P 0.1% Oph Soln] solution Dorzolamide 2% Oph Soln [Trusopt 1 drop BOTH EYES TID ophthalmic 02/21/1609/01 Rx 2% Oph Soln] solution Thiamine Tab [Vitamin B1 Tab] 100 mg PO DAILY tablet 02/21/16 09/01/16 Rx Travoprost 0.004% Oph Soln 1 drop BOTH EYES BEDTIME 02/21/16 09/01/16 Rx [Travatan Z] ophthalmic solution Bisacodyl Tab [Dulcolax Tab] 10 mg PO BEDTIME PRN 03/11/16 09/01/16 History Aspirin EC Tab 81 mg PO DAILY #30 tablet 03/16/16 09/01/16 Rx Latanoprost [Latanoprost 0.005 % 1 drop BOTH EYES BEDTIME 09/01/16 09/01/16 History Oph Soln] Benzonatate [Tessalon] 200 mg PO TID #30 capsule 09/03/16 Rx Fluticasone 50 Mcg Nasal [place] 1 spray BOTH NARES BID #1 spray 09/03/16 Rx [Flonase Nasal [place]] Metoprolol Tartrate Tab [Lopressor 12.5 mg PO BID #60 tablet 09/03/16 Rx Tab] Warfarin [Coumadin] 5 mg PO 2100 #30 tablet 09/03/16 Rx guaiFENesin/DM ER 600-30 [Mucinex 1 tablet PO BID PRN #0 tablet 09/03/16 Rx Dm 600-30 MG] Allergies Allergy/AdvReac Type Severity Reaction Status Date / Time No Known Allergies Allergy Unverified 12/06/15 20:30 Review of systems: Otherwise unremarkable from a sleep standpoint. Exam (P[place]) H&P - Constitutional Vitals: Period Temp Pulse Resp BP Sys/Jean Pulse Ox Last 24 Hr 97.6 F-98.9 F 58-74 16-20 100-126/59-76 93-99 Exam: He is alert and responsive in no acute distress. Pupils are nonreactive on the right but reactive on the left. Extraocular movements intact. Oropharynx with class III Mallampati exam. Neck supple without adenopathy or thyromegaly. No supraclavicular adenopathy is noted. Chest with symmetrical breath sounds without focal wheeze, rhonchi, or rales. Cardiac exam reveals a regular rhythm without murmur or gallop. Abdomen soft nontender without palpable hepatosplenomegaly or mass. Extremities are without clubbing, cyanosis, or edema. Neurologically, grossly intact. He moves all extremities with good strength. He answered questions appropriately. Medical,Surgical,& Family Hx - Medical History Cardio: History of: Hypertension, Valvular Heart Disease (AI is status post aVR) No history of: CHF, CAD Neurology: No history of: Seizures HEENT: History of: Eye Problem (Rt eye surg R/T trauma), Glaucoma Endocrine: History of: Dyslipidemia No history of: Diabetes Mellitus (IDDM), Diabetes Mellitus (NIDDM) Gastrointestinal: History of: GERD - Surgical History Cardiac Surgeries: Sugical HX of: Cardiac Surgery (Aortic valve replaced) Neurologic Surgeries: Patient denies: Neurologic Surgery Abdominal Surgeries: Patient denies: Abdominal Surgery Reproductive Surgeries: Patient denies;: Genitourinary Surgery - Social History Smoking Status: Former smoker Frequency of Alcohol Use: Occasionally Type of Drug Use: None Results - Labs CBC & BMP: 09/03/16 05:00 09/03/16 05:00 Lab Results: I have reviewed the past 24 hour labs Labs: TSH is within normal limits. Specialty Discharge - Follow Up or Referrals Follow up with: [facility] [Provider Group] (Follow-up Wednesday for INR, fax results to Dr. José Liu at [facility]. Also follow-up next week with PCP for CBC to follow platelet count) José Liu MD [Physician] - 2 Weeks
== END 2016-09-03 15:02 | disposition home or self-care (01) | DRG 813 ==
LOC: EDUNIT# → EDBD → N.ED 15:03 → N.EDINP 15:54 → SUATTDRO 15:54 → N.EDINP 18:53 → N.TELEN 19:29
PROVIDERS: ADMIT Internal Medicine; ATTEND Internal Medicine